=== PATIENT | female | born 1975 | race African-American/Black ===

== ENCOUNTER 2020-02-11 10:53 | Inpatient (IN) ==
[2020-02-11] MEDS ORDERED: amLODIPine 5 MG TABLET PO STA (11:28)
[2020-02-11] MEDS ORDERED: LABETALOL 20 MG/4 ML SYRINGE IV STA (11:29)
[2020-02-11 11:32] LABS: Basophils # 0.1 10*3/uL (0.0-0.2); Basophils % 0.6 % (0.0-0.8); Eosinophils # 0.2 10*3/uL (0.0-0.87); Eosinophils % 2.2 % (0.00-10.9); Hemoglobin 8.5 GM/DL (12.0-16.0); Immature Granulocytes % 0.8 %; Immature Granulocytes Absolute 0.09 #; Lymphocytes # 2.4 10*3/uL (1.4-4.0); Lymphocytes % 22.9 % (21.3-54.2); Mean Corpuscular HGB Conc 30.4 GM/DL (32-36); Mean Corpuscular Volume 89.2 FL (87-102); Monocytes % 4.8 % (1.7-12.7); Neutrophils % 68.7 % (38.7-73.9); Platelet Count 361 T/CUMM (130-400); Red Blood Count 3.14 MC/CUMM (3.8-5.5); Red Cell Distribution Width 13.9 % (9.3-17.3); White Blood Count 10.7 T/CUMM (4-12)
[2020-02-11] MEDS ORDERED: FUROSEMIDE 100 MG/10 ML VIAL IV STA (11:40)
[2020-02-11 11:54] LABS: Albumin 2.6 G/DL (3.4-5.0); Bilirubin,Total 0.9 MG/DL (0.2-1.0); Calcium 8.4 MG/DL (8.5-10.1); Osmolality,Calculated 285.7 MOS/KG (273-304); Total Protein 7.8 G/DL (6.4-8.3)
[2020-02-11 12:45] LABS: Ferritin 169.4 ng/ml (8-252)
[2020-02-11] MEDS ORDERED: minoxidiL 2.5 MG TABLET PO STA (12:58)
[2020-02-11] MEDS ORDERED: MORPHINE 4 MG/1 ML VIAL IV PRN (14:06)
[2020-02-11] MEDS ORDERED: BISACODYL 5 MG TABLET PO PRN (14:06)
[2020-02-11] MEDS ORDERED: ACETAMINOPHEN 325 MG TABLET PO PRN (14:06)
[2020-02-11] MEDS ORDERED: DEXTROSE 50% 25 GM/50 ML VIAL IV PRN (14:06)
[2020-02-11] MEDS ORDERED: GLUCAGON 1 MG VIAL IM PRN (14:06)
[2020-02-11] MEDS ORDERED: ONDANSETRON 4 MG/2 ML VIAL IV PRN (14:06)
[2020-02-11] MEDS ORDERED: carvediloL 12.5 MG TABLET PO SCH (15:00)
[2020-02-11 15:33] LABS: Thyroid Stimulating Hormone 2.69 uIU/ml (0.358-3.74)
[2020-02-11] MEDS ORDERED: FUROSEMIDE 20 MG/2 ML VIAL IV SCH (16:00)
[2020-02-11] MEDS: FUROSEMIDE 20 MG/2 ML VIAL IV SCH (18:03)
[2020-02-11 18:30] LABS: Apearance,Urine CLEAR (Clear); Bilirubin,Urine Negative (Negative); Blood, Urine Moderate mg/dL (Negative); Glucose,Urine (UA) Negative (Negative); Hyaline Casts,Urine 1 /LPF (0-3); Ketones,Urine Negative (Negative); Mucus,Urine Occasional /LPF (Occasional); Nitrite,Urine Negative (Negative); Protein,Urine 100 MG/DL; RBC,Urine 14 /HPF (0-4); Squamous Epithelial Cell,Urine Occasional /HPF (0-10); Urine Color Straw (Yellow); Urine Specific Gravity 1.008 (1.001-1.035); Urine Urobilinogen < 2.0 EU/DL (0.2-1.0); WBC,Urine 2 /HPF (0-6)
[2020-02-11 18:37] LABS: Barbiturates Screen,Urine Negative (Negative); Benzodiazepines Screen,Urine Negative (Negative); Cannabinoid Screen,Urine Negative (Negative); Opiate Screen,Urine Negative (Negative); Phencyclidine Screen,Urine Negative (Negative)
[2020-02-11 18:51] LABS: Troponin I < 0.015 NG/ML (0.00-0.045)
[2020-02-11] MEDS ORDERED: ENOXAPARIN 30 MG/0.3 ML SYRINGE SUBCUT SCH (21:00)
[2020-02-11] MEDS: carvediloL 25 MG TABLET PO SCH (22:14)
[2020-02-11] MEDS: diphenhydrAMINE CAP 25 MG CAPSULE PO PRN (22:14)
[2020-02-11] MEDS: ISOSORBIDE DINITRATE 20 MG TABLET PO SCH (22:14)
[2020-02-11] MEDS: hydrALAZINE 25 MG TABLET PO SCH (22:14)
[2020-02-11 22:35] LABS: Troponin I 0.021 NG/ML (0.00-0.045)
[2020-02-12 01:27] LABS: Basophils # 0.1 10*3/uL (0.0-0.2); Basophils % 0.6 % (0.0-0.8); Eosinophils # 0.3 10*3/uL (0.0-0.87); Eosinophils % 2.8 % (0.00-10.9); Hematocrit 24.3 VOL% (35.7-47.0); Hemoglobin 7.5 GM/DL (12.0-16.0); Immature Granulocytes % 0.8 %; Immature Granulocytes Absolute 0.09 #; Lymphocytes # 2.4 10*3/uL (1.4-4.0); Lymphocytes % 21.9 % (21.3-54.2); Mean Corpuscular HGB Conc 30.9 GM/DL (32-36); Mean Corpuscular Volume 87.7 FL (87-102); Monocytes % 6.3 % (1.7-12.7); Neutrophils % 67.6 % (38.7-73.9); Platelet Count 295 T/CUMM (130-400); Red Blood Count 2.77 MC/CUMM (3.8-5.5); Red Cell Distribution Width 13.8 % (9.3-17.3); White Blood Count 10.7 T/CUMM (4-12)
[2020-02-12 02:00] LABS: Troponin I 0.027 NG/ML (0.00-0.045)
[2020-02-12 02:01] LABS: Calcium 8.4 MG/DL (8.5-10.1); Osmolality,Calculated 288.5 MOS/KG (273-304); Risk Ratio 3.39; VLDL CHOLESTEROL 27.6 MG/DL
[2020-02-12] MEDS: hydrALAZINE 25 MG TABLET PO SCH ×3 (07:46→14:35)
[2020-02-12] MEDS: carvediloL 25 MG TABLET PO SCH ×2 (07:46→08:37)
[2020-02-12] MEDS: ISOSORBIDE DINITRATE 20 MG TABLET PO SCH ×2 (07:46→08:38)
[2020-02-12] MEDS: FUROSEMIDE 20 MG/2 ML VIAL IV SCH ×2 (07:46→16:33)
[2020-02-12 08:46] LABS: % Iron Saturation 10.3 % (18-50); Ferritin 140.3 ng/ml (8-252)
[2020-02-12 09:29] LABS: Basophils % 0.5 % (0.0-0.8); Eosinophils # 0.3 10*3/uL (0.0-0.87); Eosinophils % 3.5 % (0.00-10.9); Hemoglobin 7.8 GM/DL (12.0-16.0); Immature Granulocytes % 0.8 %; Immature Granulocytes Absolute 0.07 #; Lymphocytes # 1.6 10*3/uL (1.4-4.0); Mean Corpuscular HGB Conc 31.2 GM/DL (32-36); Mean Corpuscular Volume 87.4 FL (87-102); Monocytes % 6.3 % (1.7-12.7); Neutrophils % 69.9 % (38.7-73.9); Platelet Count 293 T/CUMM (130-400); Red Blood Count 2.86 MC/CUMM (3.8-5.5); Red Cell Distribution Width 13.9 % (9.3-17.3); White Blood Count 8.5 T/CUMM (4-12)
[2020-02-12 11:01] LABS: Sedimentation Rate-Westergren 131 MM/HR (0-20)
[2020-02-12 11:33] LABS: Folate 11.6 NG/ML (5.4-24.0); Vitamin B12 485 PG/ML (211-911)
[2020-02-12 11:35] LABS: Folate 7.1 NG/ML (5.4-24.0)
[2020-02-12] MEDS ORDERED: SODIUM CHLORIDE 0.9% 1,000 ML IV PRN (11:43)
[2020-02-12] MEDS: ASPIRIN EC 81 MG TABLET PO SCH (12:19)
[2020-02-12 13:27] LABS: % Iron Saturation 10.4 % (18-50)
[2020-02-12] MEDS ORDERED: carvediloL 12.5 MG TABLET PO SCH (15:32)
[2020-02-12] MEDS: HEPARIN 5,000 UNIT/1 ML VIAL SUBCUT SCH (16:33)
[2020-02-12] MEDS: ATORVASTATIN 40 MG TABLET PO SCH (20:58)
[2020-02-12] MEDS: diphenhydrAMINE CAP 25 MG CAPSULE PO PRN (20:59)
[2020-02-13] MEDS: HEPARIN 5,000 UNIT/1 ML VIAL SUBCUT SCH ×3 (00:27→16:24)
[2020-02-13 06:30] LABS: Basophils # 0.1 10*3/uL (0.0-0.2); Basophils % 0.5 % (0.0-0.8); Eosinophils # 0.6 10*3/uL (0.0-0.87); Eosinophils % 5.5 % (0.00-10.9); Hematocrit 28.8 VOL% (35.7-47.0); Hemoglobin 9.5 GM/DL (12.0-16.0); Immature Granulocytes % 0.5 %; Immature Granulocytes Absolute 0.06 #; Lymphocytes # 2.3 10*3/uL (1.4-4.0); Lymphocytes % 20.7 % (21.3-54.2); Mean Corpuscular Volume 85.7 FL (87-102); Mean Platelet Volume 9.6 FL (9.6-12.0); Monocytes % 7.6 % (1.7-12.7); Neutrophils % 65.2 % (38.7-73.9); Platelet Count 273 T/CUMM (130-400); Red Blood Count 3.36 MC/CUMM (3.8-5.5); Red Cell Distribution Width 13.9 % (9.3-17.3); White Blood Count 10.9 T/CUMM (4-12)
[2020-02-13 06:46] LABS: Calcium 8.5 MG/DL (8.5-10.1); Osmolality,Calculated 285.8 MOS/KG (273-304)
[2020-02-13 08:43] LABS: Hemoglobin A1 (Alkaline) 97.3 % (96.5-98.5); Hemoglobin A2 (Alkaline) 2.7 % (1.5-3.5)
[2020-02-13] MEDS: ASPIRIN EC 81 MG TABLET PO SCH (09:02)
[2020-02-13] MEDS: FUROSEMIDE 20 MG/2 ML VIAL IV SCH (09:05)
[2020-02-13] MEDS: ISOSORBIDE MONONITRATE 30 MG TABLET PO SCH (12:37)
[2020-02-13] MEDS: hydrALAZINE 10 MG TABLET PO SCH ×2 (12:38→20:33)
[2020-02-13] MEDS: IRON SUCROSE 300 MG in SODIUM CHLORIDE 0.9% 100 ML IV SCH (12:38)
[2020-02-13] MEDS: FUROSEMIDE 20 MG TABLET PO SCH (16:24)
[2020-02-13] MEDS: carvediloL 25 MG TABLET PO SCH (20:34)
[2020-02-13] MEDS: ATORVASTATIN 40 MG TABLET PO SCH (20:34)
[2020-02-14] MEDS: HEPARIN 5,000 UNIT/1 ML VIAL SUBCUT SCH ×2 (00:35→08:38)
[2020-02-14 06:41] LABS: Basophils # 0.1 10*3/uL (0.0-0.2); Basophils % 0.6 % (0.0-0.8); Eosinophils # 0.5 10*3/uL (0.0-0.87); Eosinophils % 4.9 % (0.00-10.9); Hematocrit 29.2 VOL% (35.7-47.0); Hemoglobin 9.3 GM/DL (12.0-16.0); Immature Granulocytes % 0.7 %; Immature Granulocytes Absolute 0.07 #; Lymphocytes # 2.2 10*3/uL (1.4-4.0); Lymphocytes % 20.6 % (21.3-54.2); Mean Corpuscular HGB Conc 31.8 GM/DL (32-36); Mean Corpuscular Volume 87.2 FL (87-102); Mean Platelet Volume 9.7 FL (9.6-12.0); Monocytes % 7.1 % (1.7-12.7); Neutrophils % 66.1 % (38.7-73.9); Platelet Count 273 T/CUMM (130-400); Red Blood Count 3.35 MC/CUMM (3.8-5.5); Red Cell Distribution Width 13.9 % (9.3-17.3); White Blood Count 10.5 T/CUMM (4-12)
[2020-02-14 07:04] LABS: Calcium 8.7 MG/DL (8.5-10.1); Osmolality,Calculated 289.8 MOS/KG (273-304)
[2020-02-14] MEDS: FUROSEMIDE 20 MG TABLET PO SCH (08:36)
[2020-02-14] MEDS: ISOSORBIDE MONONITRATE 30 MG TABLET PO SCH (08:37)
[2020-02-14] MEDS: carvediloL 25 MG TABLET PO SCH (08:37)
[2020-02-14] MEDS: hydrALAZINE 10 MG TABLET PO SCH (08:37)
[2020-02-14] MEDS: ASPIRIN EC 81 MG TABLET PO SCH (08:37)
[2020-02-14] MEDS: IRON SUCROSE 300 MG in SODIUM CHLORIDE 0.9% 100 ML IV SCH (09:48)
[2020-02-14 12:21] VITALS: BP 107/74
== END 2020-02-14 12:50 | disposition home or self-care (01) | DRG 291 ==
LOC: N.ED 10:53 → N.EDINP 16:09 → SUATTDRO 16:09 → N.EDINP 16:40 → N.2E 17:09
PROVIDERS: ADMIT Internal Medicine; ATTEND Emergency Medicine